=== PATIENT | male | born 1980 | race Hispanic/Latino ===

== ENCOUNTER 2019-05-25 07:10 | Inpatient (IN) | payer OTHER ==
[~2019-05-25] VITALS: Ht 172.7 cm; Wt 157.0 kg
[2019-05-25] VITALS (18 sets, daily range): BP systolic 75–152; BP diastolic 30–96
[2019-05-25] MEDS ORDERED: FUROSEMIDE 10 MG/ML 4ML VIAL ONE (07:28)
[2019-05-25 07:46] LABS: BASOPHILS % (AUTO) 0.8 % (0.0-5.0); EOSINOPHILS % (AUTO) 4.2 % (0.0-8.0); HEMATOCRIT 50.2 % (42-54); LYMPHOCYTES % (AUTO) 20.7 % (21.0-51.0); MEAN CORPUSCULAR HEMOGLOBIN 25.7 pg (27.0-33.0); MEAN CORPUSCULAR HGB CONC 30.6 g/dL (32.0-36.0); MONOCYTES % (AUTO) 8.3 % (3.0-13.0); NUCLEATED RED BLOOD CELLS 0.4 % (0.0-0.19); PLATELET COUNT (AUTO) 211 K/uL (130-400); RED BLOOD CELL COUNT(AUTO) 5.97 MIL/uL (4.50-6.20); WHITE BLOOD COUNT (AUTO) 9.7 K/uL (4.8-10.8)
[2019-05-25 07:53] LABS: POTASSIUM 4.6 mmol/L (3.5-5.1)
[2019-05-25 07:55] LABS: INR 1.02 (0.85-1.15); PARTIAL THROMBOPLASTIN TIME 24.4 SEC (26.3-35.5); PROTHROMBIN TIME 10.7 SEC (9.6-11.6)
[2019-05-25 07:58] LABS: ABG BASE EXCESS 6.7 mmol/L (-2.0-3.0); ABG HCO3 38.5 mmol/L (21.0-28.0); ABG OXYGEN SATURATION 88.1 % (95.0-99.0); ABG PCO2 96 mmHg (35-48)
[2019-05-25 08:09] LABS: ALBUMIN 3.1 g/dL (3.5-5.0); BILIRUBIN,TOTAL 0.5 mg/dL (0.2-1.0); TOTAL PROTEIN, SERUM 7.1 g/dL (6.0-8.3)
[2019-05-25 08:36] LABS: B-TYPE NATRIURETIC PEPTIDE 128 pg/mL (0-100)
[2019-05-25] MEDS ORDERED: LACTULOSE 20 GM/30 ML UDCUP PO PRN (10:30)
[2019-05-25] MEDS ORDERED: ONDANSETRON HCL 4 MG/2 ML VIAL IV PRN (10:30)
[2019-05-25] MEDS: ZOSYN 3.375GM+NS 50ML 50 ML IV SCH ×2 (10:45→18:00)
[2019-05-25] MEDS ORDERED: VANCOMYCIN 2 GM in SODIUM CHLORIDE 0.9% 500ML 500 ML IV SCH (10:45)
[2019-05-25] MEDS ORDERED: VANCOMYCIN PROTOCOL PER PHARMACY IV SCH ×2 (10:45→11:00)
[2019-05-25] MEDS ORDERED: PHARMACY COMMUNICATION MISC SCH (11:00)
[2019-05-25 11:12] LABS: APPEARANCE,URINE Clear (CLEAR); BILIRUBIN,URINE Negative (NEGATIVE); COLOR,URINE Yellow (YELLOW); GLUCOSE, URINE (UA) Negative (NEGATIVE); KETONES,URINE Negative (NEGATIVE); LEUKOCYTE ESTERASE ,URINE Negative (NEGATIVE); NITRATE,URINE Negative (NEGATIVE); OCCULT BLOOD,URINE Large (NEGATIVE); PH,URINE 5.5 (5.0-8.0); PROTEIN,URINE Negative (NEGATIVE)
[2019-05-25 11:17] LABS: AMPHET/METH SCREEN,URINE NEGATIVE (NEGATIVE); BARBITURATE SCREEN, URINE NEGATIVE (NEGATIVE); BENZODIAZEPINES SCREEN,URINE NEGATIVE (NEGATIVE); CANNABINOID SCREEN,URINE NEGATIVE (NEGATIVE); COCAINE SCREEN,URINE NEGATIVE (NEGATIVE); OPIATE SCREEN,URINE NEGATIVE (NEGATIVE); PHENCYCLIDINE SCREEN,URINE NEGATIVE (NEGATIVE)
[2019-05-25] MEDS ORDERED: SODIUM BICARB 8.4% 50ML SYRINGE IVP ONE (11:21)
[2019-05-25] MEDS ORDERED: EPINEPHRINE 0.1 MG/ML 10 ML SYG IVP ONE (11:21)
[2019-05-25] MEDS ORDERED: AMIODARONE HCL 50 MG/ML 3 ML VIAL IV ONE (11:21)
[2019-05-25] MEDS ORDERED: ATROPINE SULFATE 0.1 MG/ML 10 ML SYG IVP ONE (11:21)
[2019-05-25 11:28] LABS: ABG BASE EXCESS 4.8 mmol/L (-2.0-3.0); ABG HCO3 37.8 mmol/L (21.0-28.0); ABG OXYGEN SATURATION 91.6 % (95.0-99.0); ABG PCO2 103 mmHg (35-48)
[2019-05-25] MEDS ORDERED: IOHEXOL 350 MG/ML 100ML INFUS..BTL IV ONE (11:52)
[2019-05-25 11:56] LABS: BACTERIA,URINE Rare /HPF (None Seen); RBC,URINE TNTC /HPF (0-1); SQUAMOUS EPITHELIAL CELL,UR Rare /HPF (0-2); WBC,URINE 0-1 /HPF (0-1)
[2019-05-25] MEDS ORDERED: IPRATROPIUM/ALBUTEROL SULFATE 3 ML SOLUTION IH SCH (12:00)
[2019-05-25] MEDS ORDERED: ZOSYN 3.375GM+NS 50ML 50 ML IV ONE (12:24)
--- NOTE | 2019-05-25 12:38 | NUR ---
PATIENT ARRIVED TO 209 FROM ER. PATIENT MOVED HIMSELF FROM ER STRETCHER TO ICU BED. CONNECTED TO ICU MONITORS, ALARMS ON AND AUDIBLE. PLACED ON BIPAP AT ORDERED SETTINGS. ASSESSED PER CHARTING. PATIENT'S IN ROOM, ALL QUESTIONS ANSWERED. BED LOCKED AND LOW, CALL LIGHT IN REACH.
[2019-05-25] MEDS ORDERED: FURO20TA4 PO (12:59)
[2019-05-25] MEDS ORDERED: COMPOUND IV REFRIGERATED 1 EACH IVSOLN MISC PRN (14:00)
[2019-05-25] MEDS ORDERED: ETOMIDATE 2 MG/ML 10 ML VIAL IVP ONE (14:14)
[2019-05-25] MEDS ORDERED: ROCURONIUM BROMIDE 10MG/1ML 5ML VL IV ONE (14:14)
[2019-05-25 15:30] LABS: ABG BASE EXCESS 9.5 mmol/L (-2.0-3.0); ABG HCO3 43.6 mmol/L (21.0-28.0); ABG OXYGEN SATURATION 95.7 % (95.0-99.0); ABG PCO2 123 mmHg (35-48)
[2019-05-25] MEDS ORDERED: PROPOFOL 1000 MG/100 ML 100 ML IV ONE (15:32)
[2019-05-25] MEDS ORDERED: FENTANYL CITRATE PF 50 MCG/1 ML 5ML AMP IV ONE (15:34)
[2019-05-25] MEDS ORDERED: SODIUM CHLORIDE 0.9% 1000ML 1,000 ML IV ONE (15:43)
--- NOTE | 2019-05-25 15:45 | NUR ---
PATIENT INTUBATED BY DR MONGE AND PLACED ON ORDERED SETTINGS. NGT AND REYNA CATHETER PLACED ORDERED. CXR PENDING. ABG IN 2 HOURS.
[2019-05-25] MEDS ORDERED: ETOMIDATE 2 MG/ML 10 ML VIAL IVP SCH (16:30)
[2019-05-25] MEDS ORDERED: ROCURONIUM 10MG/1ML SYR 10 MG/ML ML IV SCH (16:30)
[2019-05-25] MEDS ORDERED: FENTANYL CITRATE PF 50 MCG/1 ML 2ML VIAL IVP SCH (16:30)
[2019-05-25] MEDS: INSULIN HUMULIN R 100 UNIT/ML 3ML SQ SCH (17:38)
[2019-05-25] MEDS: PROPOFOL 1000 MG/100 ML IV PRN ×3 (17:38→22:14)
[2019-05-25] MEDS: LEVOFLOXACIN 750 MG/D5W 150 ML 150 ML IV SCH (18:00)
[2019-05-25] MEDS: IPRATROPIUM/ALBUTEROL SULFATE 3 ML SOLUTION IH SCH ×2 (18:23→22:06)
[2019-05-25 19:22] LABS: ABG BASE EXCESS 12.5 mmol/L (-2.0-3.0); ABG HCO3 39.5 mmol/L (21.0-28.0); ABG OXYGEN SATURATION 94.1 % (95.0-99.0); ABG PCO2 60 mmHg (35-48)
[2019-05-25] MEDS: FAMOTIDINE/PF 20 MG/2 ML VIAL IV SCH (20:16)
[2019-05-25] MEDS: FUROSEMIDE 10 MG/ML 4ML VIAL IVP SCH (20:16)
[2019-05-25] MEDS: ENOXAPARIN SODIUM 120 MG/0.8ML SQ SCH (20:19)
[2019-05-25] MEDS: ENOXAPARIN SODIUM 60 MG/0.6 ML SQ SCH (20:20)
[2019-05-25] MEDS: METHYLPREDNISOLONE SOD SUCC 125MG/2ML VIAL IVP SCH (21:24)
[2019-05-26] VITALS (24 sets, daily range): BP systolic 115–159; BP diastolic 59–93
[2019-05-26] MEDS: PROPOFOL 1000 MG/100 ML IV PRN ×4 (00:16→05:42)
[2019-05-26] MEDS: VANCOMYCIN 1.5 GM in SODIUM CHLORIDE 0.9% 250 ML IV SCH ×2 (01:18→13:17)
[2019-05-26] MEDS: IPRATROPIUM/ALBUTEROL SULFATE 3 ML SOLUTION IH SCH ×6 (02:04→21:36)
[2019-05-26] MEDS: ZOSYN 3.375GM+NS 50ML 50 ML IV SCH ×3 (02:12→17:45)
[2019-05-26 03:46] LABS: HEMATOCRIT 51.1 % (42-54); MEAN CORPUSCULAR HEMOGLOBIN 25.6 pg (27.0-33.0); MEAN CORPUSCULAR HGB CONC 30.5 g/dL (32.0-36.0); MEAN CORPUSCULAR VOLUME 83.7 fL (79-99); NUCLEATED RED BLOOD CELLS 0.2 % (0.0-0.19); PLATELET COUNT (AUTO) 192 K/uL (130-400); RED CELL DISTRIBUTION WIDTH 17.8 % (11.0-15.5); WHITE BLOOD COUNT (AUTO) 8.5 K/uL (4.8-10.8)
[2019-05-26 04:01] LABS: CREATININE 0.9 mg/dL (0.5-1.5); MAGNESIUM 1.8 mg/dL (1.80-2.40); PHOSPHORUS 2.5 mg/dL (2.5-4.9)
[2019-05-26 04:46] LABS: ABG BASE EXCESS 10.7 mmol/L (-2.0-3.0); ABG HCO3 36.6 mmol/L (21.0-28.0); ABG PCO2 53 mmHg (35-48)
[2019-05-26] MEDS: INSULIN HUMULIN R 100 UNIT/ML 3ML SQ SCH ×4 (05:44→17:47)
[2019-05-26] MEDS: METHYLPREDNISOLONE SOD SUCC 125MG/2ML VIAL IVP SCH ×3 (05:49→21:11)
[2019-05-26] MEDS: MIDAZOLAM 100MG-0.9% NS 100ML 100 ML IV PRN ×3 (07:37→23:28)
[2019-05-26] MEDS: FENTANYL 2500MCG+NS 250ML 250 ML IV PRN ×2 (07:37→21:12)
[2019-05-26] MEDS: FUROSEMIDE 10 MG/ML 4ML VIAL IVP SCH ×3 (08:03→21:10)
[2019-05-26] MEDS: ENOXAPARIN SODIUM 120 MG/0.8ML SQ SCH (08:03)
[2019-05-26] MEDS: FAMOTIDINE/PF 20 MG/2 ML VIAL IV SCH ×2 (08:03→21:10)
[2019-05-26] MEDS: ENOXAPARIN SODIUM 60 MG/0.6 ML SQ SCH (08:06)
[2019-05-26] MEDS ORDERED: ENOXAPARIN SODIUM 40 MG/0.4 ML SYRINGE SQ SCH (09:00)
--- NOTE | 2019-05-26 15:10 | NUR ---
PATIENT MOVED ON TO SPECIALTY BED WITH ROTATION MODE ON.
[2019-05-26] MEDS: LEVOFLOXACIN 750 MG/D5W 150 ML 150 ML IV SCH (17:25)
--- NOTE | 2019-05-26 18:13 | NUR ---
cm note met with patients , pt currently intubated, states pt is normally ambulatory, but has been weaker in the last few weeks. pt has a cpap machine at home and a nebulizer as well. goes to see dr arizmendi at [facility] in [place], states dc plan is back to home at time of dc. and stepdaughter to assist when discharged to home. gets his meds at [facility]. and transports to [place]. has already spoken to [facility] for possible su[facility]anne or [facility] assistance. Addendum: 05/26/19 at 1817 by YURI VICTOR CM Amended: Links added.
[2019-05-26 18:24] LABS: HEMATOCRIT 50.7 % (42-54); MEAN CORPUSCULAR HEMOGLOBIN 25.6 pg (27.0-33.0); MEAN CORPUSCULAR HGB CONC 30.7 g/dL (32.0-36.0); MEAN CORPUSCULAR VOLUME 83.6 fL (79-99); NUCLEATED RED BLOOD CELLS 0.1 % (0.0-0.19); PLATELET COUNT (AUTO) 216 K/uL (130-400); RED BLOOD CELL COUNT(AUTO) 6.07 MIL/uL (4.50-6.20); RED CELL DISTRIBUTION WIDTH 18.3 % (11.0-15.5); WHITE BLOOD COUNT (AUTO) 10.2 K/uL (4.8-10.8)
[2019-05-26 18:37] LABS: INR 1.07 (0.85-1.15); PROTHROMBIN TIME 11.2 SEC (9.6-11.6)
[2019-05-26 20:25] LABS: HEMATOCRIT 48.9 % (42-54)
[2019-05-26 20:33] LABS: MAGNESIUM 1.9 mg/dL (1.80-2.40); POTASSIUM 4.1 mmol/L (3.5-5.1)
[2019-05-26] MEDS ORDERED: MAGNESIUM 2GM PREMIX 50ML 50 ML IV PRN (21:00)
[2019-05-26] MEDS: OXYMETAZOLINE HCL SPRAY 15 ML BOTTLE EN PRN ×2 (21:13→23:27)
[2019-05-27] VITALS (24 sets, daily range): BP systolic 109–133; BP diastolic 50–95
[2019-05-27] MEDS: IPRATROPIUM/ALBUTEROL SULFATE 3 ML SOLUTION IH SCH ×6 (01:01→21:56)
[2019-05-27] MEDS: VANCOMYCIN 1.5 GM in SODIUM CHLORIDE 0.9% 250 ML IV SCH ×2 (02:07→13:43)
[2019-05-27] MEDS: INSULIN HUMULIN R 100 UNIT/ML 3ML SQ SCH ×4 (02:10→17:57)
[2019-05-27] MEDS: ZOSYN 3.375GM+NS 50ML 50 ML IV SCH ×3 (03:55→17:50)
[2019-05-27 04:04] LABS: BASOPHILS % (AUTO) 0.1 % (0.0-5.0); HEMATOCRIT 46.8 % (42-54); LYMPHOCYTES % (AUTO) 7.5 % (21.0-51.0); MEAN CORPUSCULAR HEMOGLOBIN 25.9 pg (27.0-33.0); MEAN CORPUSCULAR HGB CONC 31.5 g/dL (32.0-36.0); MEAN CORPUSCULAR VOLUME 82.3 fL (79-99); MONOCYTES % (AUTO) 5.9 % (3.0-13.0); NEUTROPHILS % (AUTO) 86.5 % (40.0-77.0); NUCLEATED RED BLOOD CELLS 0.1 % (0.0-0.19); PLATELET COUNT (AUTO) 236 K/uL (130-400); RED BLOOD CELL COUNT(AUTO) 5.68 MIL/uL (4.50-6.20); RED CELL DISTRIBUTION WIDTH 17.6 % (11.0-15.5); WHITE BLOOD COUNT (AUTO) 10.3 K/uL (4.8-10.8)
[2019-05-27 04:20] LABS: CREATININE 1.3 mg/dL (0.5-1.5); MAGNESIUM 2.2 mg/dL (1.80-2.40); PHOSPHORUS 4.2 mg/dL (2.5-4.9); POTASSIUM 4.3 mmol/L (3.5-5.1)
[2019-05-27] MEDS: OXYMETAZOLINE HCL SPRAY 15 ML BOTTLE EN PRN (05:05)
[2019-05-27] MEDS: METHYLPREDNISOLONE SOD SUCC 125MG/2ML VIAL IVP SCH ×3 (05:54→21:19)
[2019-05-27] MEDS: FUROSEMIDE 10 MG/ML 4ML VIAL IVP SCH ×3 (05:54→21:18)
[2019-05-27 07:05] LABS: ABG BASE EXCESS 12.2 mmol/L (-2.0-3.0); ABG HCO3 37.5 mmol/L (21.0-28.0); ABG OXYGEN SATURATION 92.9 % (95.0-99.0); ABG PCO2 50 mmHg (35-48)
[2019-05-27] MEDS: FAMOTIDINE/PF 20 MG/2 ML VIAL IV SCH ×2 (08:10→21:18)
[2019-05-27] MEDS: FENTANYL 2500MCG+NS 250ML 250 ML IV PRN (10:28)
[2019-05-27] MEDS: MIDAZOLAM 100MG-0.9% NS 100ML 100 ML IV PRN ×2 (10:28→20:30)
[2019-05-27] MEDS: ENOXAPARIN SODIUM 40 MG/0.4 ML SYRINGE SQ SCH (13:20)
[2019-05-27] MEDS: VANCOMYCIN 1.75 GM in SODIUM CHLORIDE 0.9% 250 ML IV SCH (14:00)
[2019-05-27] MEDS: LEVOFLOXACIN 750 MG/D5W 150 ML 150 ML IV SCH (17:19)
[2019-05-28] VITALS (25 sets, daily range): BP systolic 119–160; BP diastolic 63–98
[2019-05-28] MEDS: INSULIN HUMULIN R 100 UNIT/ML 3ML SQ SCH ×4 (01:16→18:02)
[2019-05-28] MEDS: IPRATROPIUM/ALBUTEROL SULFATE 3 ML SOLUTION IH SCH ×6 (01:54→21:54)
[2019-05-28] MEDS: VANCOMYCIN 1.75 GM in SODIUM CHLORIDE 0.9% 250 ML IV SCH ×2 (02:21→14:24)
[2019-05-28] MEDS: FENTANYL 2500MCG+NS 250ML 250 ML IV PRN ×2 (02:21→14:22)
[2019-05-28] MEDS: ZOSYN 3.375GM+NS 50ML 50 ML IV SCH ×3 (02:21→18:03)
[2019-05-28 04:24] LABS: BASOPHILS % (AUTO) 0.3 % (0.0-5.0); HEMATOCRIT 45.5 % (42-54); LYMPHOCYTES % (AUTO) 9.5 % (21.0-51.0); MEAN CORPUSCULAR HEMOGLOBIN 25.7 pg (27.0-33.0); MEAN CORPUSCULAR HGB CONC 31.2 g/dL (32.0-36.0); MEAN CORPUSCULAR VOLUME 82.5 fL (79-99); NEUTROPHILS % (AUTO) 84.2 % (40.0-77.0); NUCLEATED RED BLOOD CELLS 0.1 % (0.0-0.19); PLATELET COUNT (AUTO) 203 K/uL (130-400); RED BLOOD CELL COUNT(AUTO) 5.52 MIL/uL (4.50-6.20); RED CELL DISTRIBUTION WIDTH 18.1 % (11.0-15.5); WHITE BLOOD COUNT (AUTO) 9.8 K/uL (4.8-10.8)
[2019-05-28 04:38] LABS: ALANINE AMINOTRANSFERASE 42 U/L (12-78); ALBUMIN 2.7 g/dL (3.5-5.0); ASPARTATE AMINOTRANSFERASE 33 U/L (10-37); BILIRUBIN,TOTAL 0.9 mg/dL (0.2-1.0); CARBON DIOXIDE 36 mmol/L (21-32); CHLORIDE 98 mmol/L (101-111); CREATININE 1.3 mg/dL (0.5-1.5); GLOMERULAR FILTR. RATE CALC 66 mL/min (>60); GLUCOSE,RANDOM 182 mg/dL (70-105); POTASSIUM 3.9 mmol/L (3.5-5.1); SODIUM SERUM 139 mmol/L (136-145); TOTAL PROTEIN, SERUM 6.5 g/dL (6.0-8.3); UREA NITROGEN, BLOOD 30 mg/dL (7-18)
[2019-05-28] MEDS: MIDAZOLAM 100MG-0.9% NS 100ML 100 ML IV PRN ×2 (06:36→15:30)
[2019-05-28] MEDS: METHYLPREDNISOLONE SOD SUCC 125MG/2ML VIAL IVP SCH ×3 (06:42→21:44)
[2019-05-28] MEDS: FUROSEMIDE 10 MG/ML 4ML VIAL IVP SCH ×3 (06:43→21:44)
--- NOTE | 2019-05-28 08:26 | NUR ---
pt intubated. on vent Addendum: 05/28/19 at 0827 by JAMIR JUAREZ RT Amended: Links added.
[2019-05-28] MEDS: FAMOTIDINE/PF 20 MG/2 ML VIAL IV SCH ×2 (09:33→20:37)
[2019-05-28] MEDS: ENOXAPARIN SODIUM 40 MG/0.4 ML SYRINGE SQ SCH (09:34)
[2019-05-28 11:13] LABS: ABG BASE EXCESS 10.2 mmol/L (-2.0-3.0); ABG HCO3 36.5 mmol/L (21.0-28.0); ABG OXYGEN SATURATION 90.9 % (95.0-99.0); ABG PCO2 55 mmHg (35-48)
[2019-05-28] MEDS: PROPOFOL 1000 MG/100 ML IV PRN ×4 (11:24→22:31)
[2019-05-28] MEDS: HEPARIN SODIUM 5000UNIT/ML 1ML VIAL SQ SCH ×2 (12:00→20:38)
--- NOTE | 2019-05-28 12:56 | NUR ---
PT NOW SEDATE WITH DIPRIVAN ON BOARD. PEEP IS NOW AT 10
--- NOTE | 2019-05-28 14:42 | NUR ---
RD NOTIFICATION - TUBE FEEDING RECOMMENDATIONS Tube Feeding Recommendations: Cont. Glucerna 1.5 @55mls/hr (1980kcal/109gm protein)Rec Flushes: 250mls Q6hrs. Tube feeding recommendations placed in Pt chart. RN notified. Pt admitted for CHF, Acute Respiratory Failure. Pt LBM 05/24/19. Pt monitored labs: Cl 98, CO2 36, BUN 30, Glu 207, Alb 2.7. Pt intubated, mechanical vent, NGT in place. RD to continue to monitor. Please notify RD as additional nutrition concerns arise. Thank you. Addendum: 05/28/19 at [address] RD Amended: Links added.
[2019-05-28] MEDS: LEVOFLOXACIN 750 MG/D5W 150 ML 150 ML IV SCH (16:21)
[2019-05-29] VITALS (25 sets, daily range): BP systolic 121–151; BP diastolic 64–102
[2019-05-29] MEDS: INSULIN HUMULIN R 100 UNIT/ML 3ML SQ SCH ×4 (00:25→19:38)
[2019-05-29] MEDS: FENTANYL 2500MCG+NS 250ML 250 ML IV PRN ×3 (00:27→20:51)
[2019-05-29] MEDS: MIDAZOLAM 100MG-0.9% NS 100ML 100 ML IV PRN ×3 (00:27→20:51)
[2019-05-29] MEDS: IPRATROPIUM/ALBUTEROL SULFATE 3 ML SOLUTION IH SCH ×6 (01:26→21:35)
[2019-05-29] MEDS: PROPOFOL 1000 MG/100 ML IV PRN ×4 (02:01→22:45)
[2019-05-29] MEDS: ZOSYN 3.375GM+NS 50ML 50 ML IV SCH ×3 (02:01→19:36)
[2019-05-29] MEDS: VANCOMYCIN 1.75 GM in SODIUM CHLORIDE 0.9% 250 ML IV SCH ×2 (02:02→15:17)
[2019-05-29 03:49] LABS: BASOPHILS % (AUTO) 0.3 % (0.0-5.0); HEMATOCRIT 46.5 % (42-54); LYMPHOCYTES % (AUTO) 8.3 % (21.0-51.0); MEAN CORPUSCULAR HEMOGLOBIN 25.6 pg (27.0-33.0); MEAN CORPUSCULAR HGB CONC 31.2 g/dL (32.0-36.0); MONOCYTES % (AUTO) 7.3 % (3.0-13.0); NEUTROPHILS % (AUTO) 84.1 % (40.0-77.0); PLATELET COUNT (AUTO) 215 K/uL (130-400); RED BLOOD CELL COUNT(AUTO) 5.67 MIL/uL (4.50-6.20); RED CELL DISTRIBUTION WIDTH 18.1 % (11.0-15.5); WHITE BLOOD COUNT (AUTO) 9.5 K/uL (4.8-10.8)
[2019-05-29] MEDS: HEPARIN SODIUM 5000UNIT/ML 1ML VIAL SQ SCH ×3 (04:01→20:35)
[2019-05-29 04:02] LABS: ALBUMIN 2.9 g/dL (3.5-5.0); CREATININE 1.9 mg/dL (0.5-1.5); MAGNESIUM 2.8 mg/dL (1.80-2.40); PHOSPHORUS 5.5 mg/dL (2.5-4.9); POTASSIUM 4.1 mmol/L (3.5-5.1); TOTAL PROTEIN, SERUM 6.7 g/dL (6.0-8.3)
[2019-05-29 04:12] LABS: ABG BASE EXCESS 9.8 mmol/L (-2.0-3.0); ABG HCO3 34.8 mmol/L (21.0-28.0); ABG OXYGEN SATURATION 93.4 % (95.0-99.0); ABG PCO2 47 mmHg (35-48)
[2019-05-29] MEDS: METHYLPREDNISOLONE SOD SUCC 125MG/2ML VIAL IVP SCH ×2 (05:15→15:16)
[2019-05-29] MEDS: FUROSEMIDE 10 MG/ML 4ML VIAL IVP SCH ×2 (05:16→11:38)
--- NOTE | 2019-05-29 08:00 | NUR ---
ASSESSMENT Orally intubated/sedated. Propofol gtt @30mcg/kg/min, fentanyl gtt @25ml/hr, versed gtt @10mg/hr. Pt appears comfortably sedated. VS as recorded. Vent settings as recorded. Pt repositioned. Posteriorly, breath sounds are clear to upper lobes. Fine inspiratory crackles noted to LLL. Abd obese. Very diminished bowel sounds. Abd slightly distended. NGT in place - residual check performed with brisk return of 70ml of TF. Residual returned. TF off at present. Will reassess. PIV x3 patent with brisk blood return from 3 sites. F/C patent. Pedal edema noted. Assessment completed/recorded. HOB @30-degrees - bed rotation ON. Pt's family member at bedside - questions addressed.
--- NOTE | 2019-05-29 10:45 | NUR ---
PT CARE/VENT MANAGEMENT Vent changes made by during rounds. R.T. contacted - spoke to Anaya.
[2019-05-29] MEDS: FAMOTIDINE/PF 20 MG/2 ML VIAL IV SCH ×2 (10:51→20:50)
--- NOTE | 2019-05-29 11:00 | NUR ---
STATUS 5ml TF residual obtained - returned. TF resumed at 25ml/hr. HOB @30-degrees. Opti-Rest therapy now active on bed - rotation off. Eye opening with tactile stimulation - now off diprivan x25 minutes. Pt currently calm - focuses gaze on caregiver. Pt reassured. Will observe tolerance of decreased sedation. Family members remain at bedside. Pt is in no acute distress. No other acute changes in overall assessment noted.
--- NOTE | 2019-05-29 12:25 | NUR ---
STATUS Spontaneous eye opening. Focuses and follows commands. Calm, cooperative. Denies pain when questioned. SR/ST on tele. Pt reoriented/reassured. Repositioned for comfort. HOB @30-degrees. Family members remains at bedside. Pt is in no acute distress.
--- NOTE | 2019-05-29 13:19 | NUR ---
CHART CHECK COMPLETED. Pt IS A 38 YEAR OLD MAN ADMITTED SECONDARY TO METABOLIC ENCEPHALOPATHY, ACUTE ON CHRONIC HYPOXEMIC AND HYPERCARBIC RESPIRATORY FAILURE. Pt WITH MORBID OBESITY, ACUTE HEART FAILURE AND ACUTE PULMONARY EDEMA. Pt CURRENTLY INTUBATED ON THE VENT. SKILLED SPEECH THERAPY IS RECOMMENDED 24 HOURS POST EXTUBATION. Addendum: 05/29/19 at 1322 by AUSTIN JUAN [facility] Amended: Links added.
[2019-05-29 16:13] LABS: ABG BASE EXCESS 7.9 mmol/L (-2.0-3.0); ABG HCO3 36.4 mmol/L (21.0-28.0); ABG PCO2 68 mmHg (35-48)
--- NOTE | 2019-05-29 16:26 | NUR ---
UPDATE aware of recent ABG results.
[2019-05-29] MEDS: LEVOFLOXACIN 750 MG/D5W 150 ML 150 ML IV SCH (17:13)
[2019-05-29] MEDS ORDERED: DIGOXIN 250 MCG/ML 2ML AMP IV SCH ×2 (17:15→23:00)
[2019-05-29] MEDS: METHYLPREDNISOLONE SOD SUCC 40MG/ML 1ML IVP SCH (20:50)
[2019-05-29] MEDS: METOPROLOL TARTRATE 25 MG TAB PO SCH (20:50)
[2019-05-30] VITALS (36 sets, daily range): BP systolic 92–129; BP diastolic 46–79
[2019-05-30] MEDS: INSULIN HUMULIN R 100 UNIT/ML 3ML SQ SCH ×4 (00:28→18:00)
[2019-05-30] MEDS: PROPOFOL 1000 MG/100 ML IV PRN ×6 (01:25→23:09)
[2019-05-30] MEDS: IPRATROPIUM/ALBUTEROL SULFATE 3 ML SOLUTION IH SCH ×6 (01:46→21:38)
--- NOTE | 2019-05-30 03:10 | NUR ---
COMPLETE BATH GIVEN LINENS CHANGED. NO SKIN BREAKDOWN.
[2019-05-30] MEDS: VANCOMYCIN 1.75 GM in SODIUM CHLORIDE 0.9% 250 ML IV SCH (03:14)
[2019-05-30] MEDS: ZOSYN 3.375GM+NS 50ML 50 ML IV SCH ×3 (03:20→17:57)
[2019-05-30] MEDS: HEPARIN SODIUM 5000UNIT/ML 1ML VIAL SQ SCH ×3 (03:21→20:17)
[2019-05-30 03:41] LABS: ALBUMIN 2.8 g/dL (3.5-5.0); BILIRUBIN,TOTAL 1.1 mg/dL (0.2-1.0); CREATININE 1.2 mg/dL (0.5-1.5); POTASSIUM 4.5 mmol/L (3.5-5.1); TOTAL PROTEIN, SERUM 6.7 g/dL (6.0-8.3)
[2019-05-30 03:49] LABS: BASOPHILS % (AUTO) 0.1 % (0.0-5.0); HEMATOCRIT 45.8 % (42-54); LYMPHOCYTES % (AUTO) 8.4 % (21.0-51.0); MEAN CORPUSCULAR HEMOGLOBIN 25.9 pg (27.0-33.0); MEAN CORPUSCULAR HGB CONC 30.9 g/dL (32.0-36.0); MEAN CORPUSCULAR VOLUME 83.7 fL (79-99); MONOCYTES % (AUTO) 8.6 % (3.0-13.0); NEUTROPHILS % (AUTO) 82.9 % (40.0-77.0); PLATELET COUNT (AUTO) 203 K/uL (130-400); RED BLOOD CELL COUNT(AUTO) 5.48 MIL/uL (4.50-6.20); RED CELL DISTRIBUTION WIDTH 17.7 % (11.0-15.5); WHITE BLOOD COUNT (AUTO) 9.6 K/uL (4.8-10.8)
[2019-05-30 03:57] LABS: B-TYPE NATRIURETIC PEPTIDE 12 pg/mL (0-100)
[2019-05-30 04:14] LABS: ABG BASE EXCESS 7.3 mmol/L (-2.0-3.0); ABG HCO3 34.1 mmol/L (21.0-28.0); ABG PCO2 57 mmHg (35-48)
[2019-05-30] MEDS: MIDAZOLAM 100MG-0.9% NS 100ML 100 ML IV PRN ×2 (06:26→16:25)
[2019-05-30] MEDS: FENTANYL 2500MCG+NS 250ML 250 ML IV PRN ×2 (06:27→17:42)
--- NOTE | 2019-05-30 06:48 | NUR ---
AM ABG RESULTS REPORTED TO Parminder JAMES,BOX PRINTING MACHINE OPERATOR-NEW ORDERS RECEIVED
[2019-05-30] MEDS: METHYLPREDNISOLONE SOD SUCC 40MG/ML 1ML IVP SCH ×2 (09:17→20:26)
[2019-05-30] MEDS: FUROSEMIDE 10 MG/ML 4ML VIAL IVP SCH ×2 (09:18→17:51)
[2019-05-30] MEDS: FAMOTIDINE/PF 20 MG/2 ML VIAL IV SCH ×2 (09:18→20:26)
[2019-05-30] MEDS: METOPROLOL TARTRATE 25 MG TAB PO SCH ×3 (09:18→21:00)
[2019-05-30] MEDS: ASPIRIN 81MG TAB.CHEW PO SCH (13:19)
[2019-05-30] MEDS ORDERED: DIGOXIN 125 MCG TABLET PO SCH (16:00)
[2019-05-30] MEDS: LEVOFLOXACIN 750 MG/D5W 150 ML 150 ML IV SCH (16:15)
[2019-05-30 19:37] LABS: MAGNESIUM 2.7 mg/dL (1.80-2.40)
[2019-05-30 23:36] LABS: ABG BASE EXCESS 11.1 mmol/L (-2.0-3.0); ABG HCO3 37.7 mmol/L (21.0-28.0); ABG OXYGEN SATURATION 87.8 % (95.0-99.0); ABG PCO2 57 mmHg (35-48)
[2019-05-30 23:47] LABS: ABG BASE EXCESS 10.7 mmol/L (-2.0-3.0); ABG HCO3 37.1 mmol/L (21.0-28.0); ABG OXYGEN SATURATION 87.2 % (95.0-99.0); ABG PCO2 56 mmHg (35-48)
[2019-05-31] VITALS (38 sets, daily range): BP systolic 92–125; BP diastolic 50–75
--- NOTE | 2019-05-31 00:15 | NUR ---
Parminder JAMESTESTER EQUIPMENT NOTIFIED OF ABG RESULTS WITH VENT SETTINGS AC 12/ TV 500/PEEP10/FIO2 40%-NEW ORDER TO INCREASE FIO2 TO 60 % ABG IN AM .
[2019-05-31] MEDS: FUROSEMIDE 10 MG/ML 4ML VIAL IVP SCH ×3 (00:52→16:18)
[2019-05-31] MEDS: INSULIN HUMULIN R 100 UNIT/ML 3ML SQ SCH ×4 (00:52→18:00)
[2019-05-31] MEDS: IPRATROPIUM/ALBUTEROL SULFATE 3 ML SOLUTION IH SCH ×6 (01:46→21:36)
[2019-05-31] MEDS: ZOSYN 3.375GM+NS 50ML 50 ML IV SCH ×3 (01:59→18:32)
[2019-05-31] MEDS: MIDAZOLAM 100MG-0.9% NS 100ML 100 ML IV PRN ×3 (02:14→23:31)
[2019-05-31] MEDS: PROPOFOL 1000 MG/100 ML IV PRN ×6 (03:00→23:31)
[2019-05-31 03:54] LABS: HEMATOCRIT 46.1 % (42-54); MEAN CORPUSCULAR HGB CONC 31.5 g/dL (32.0-36.0); MEAN CORPUSCULAR VOLUME 82.4 fL (79-99); PLATELET COUNT (AUTO) 216 K/uL (130-400); RED BLOOD CELL COUNT(AUTO) 5.59 MIL/uL (4.50-6.20); RED CELL DISTRIBUTION WIDTH 17.9 % (11.0-15.5); WHITE BLOOD COUNT (AUTO) 8.8 K/uL (4.8-10.8)
[2019-05-31 03:57] LABS: ABG BASE EXCESS 11.3 mmol/L (-2.0-3.0); ABG HCO3 37.2 mmol/L (21.0-28.0); ABG PCO2 53 mmHg (35-48)
[2019-05-31] MEDS: FENTANYL 2500MCG+NS 250ML 250 ML IV PRN ×3 (04:00→23:32)
[2019-05-31] MEDS: HEPARIN SODIUM 5000UNIT/ML 1ML VIAL SQ SCH ×3 (04:01→21:20)
[2019-05-31 04:09] LABS: CREATININE 1.3 mg/dL (0.5-1.5); MAGNESIUM 2.7 mg/dL (1.80-2.40); PHOSPHORUS 4.3 mg/dL (2.5-4.9)
[2019-05-31] MEDS: METHYLPREDNISOLONE SOD SUCC 40MG/ML 1ML IVP SCH ×2 (08:09→21:09)
[2019-05-31] MEDS: ASPIRIN 81MG TAB.CHEW PO SCH (08:10)
[2019-05-31] MEDS: FAMOTIDINE/PF 20 MG/2 ML VIAL IV SCH ×2 (08:10→21:09)
[2019-05-31] MEDS: ACETAMINOPHEN 325 MG TAB PO PRN ×2 (08:43→16:47)
[2019-05-31] MEDS: METOPROLOL TARTRATE 25 MG TAB PO SCH ×2 (09:14→21:09)
[2019-05-31 09:56] LABS: ABG BASE EXCESS 10.3 mmol/L (-2.0-3.0); ABG HCO3 36.2 mmol/L (21.0-28.0); ABG OXYGEN SATURATION 90.6 % (95.0-99.0); ABG PCO2 53 mmHg (35-48)
[2019-05-31] MEDS: DOXYCYCLINE 100MG+NS 250ML 250 ML IV SCH (13:28)
[2019-05-31 13:58] LABS: ALBUMIN 3.1 g/dL (3.5-5.0); BILIRUBIN,DIRECT 0.4 mg/dL (0.0-0.3); TOTAL PROTEIN, SERUM 6.9 g/dL (6.0-8.3)
--- NOTE | 2019-05-31 15:01 | NUR ---
LUIS NOTIFICATION/ FOLLOW UP DX: CHF, ARF. DIET: TF- GLUCERNA 1.5 @30MLS/HR. FLUSH WITH 250MLS Q6. PT NOT TOLERATING WELL PER NURSE. PT WITH HIGH RESIDUALS OF 170MLS AT LOW RATE. DIPRIVAN CURRENTLY RUNNING AT 21MLS/HR. RD RECOMMENDS TO D/C GLUCERNA 1.5. RECOMMEND JEVITY 1.5 AT GOAL RATE OF 55MLS/HR. START RATE AT 20MLS/ HR. INCREASE RATE BY 5MLS EVERY 5 HOURS TOLERATED. FORMULA PROVIDES 1980KCAL/D, 100G PROTEIN, 1186MLS FREE WATER. FLUSH WITH 200MLS Q6. TOTAL CALORIES INCLUDING DIPRIVAN EQUALS TO 2534KCAL/D, TOTAL WATER EQUALS 2000MLS/D. LABS: BG 158, TG 252, CHOL 288, LDL 165, ALB 2.8, Mg 2.7 MONITOR LABS, TOLERANCE AND RESIDUALS RD WILL CONTINUE TO MONITOR AND FOLLOW UP NEEDED. THANK YOU. Addendum: 05/31/19 at [address] RD Amended: Links added.
[2019-05-31] MEDS: LEVOFLOXACIN 750 MG/D5W 150 ML 150 ML IV SCH (16:10)
--- NOTE | 2019-05-31 20:00 | NUR ---
ASSESSMENT REMAINS ON VENT WITH ORDERED SETTINGS AND SEDATION. ASSESSMENT COMPLETED SEE FLOW SHEET. FAMILY AT BEDSIDE AND QUESTIONS ANSWERED. Addendum: 05/31/19 at 2203 by BERT RIDER RN RN Amended: Links added.
[2019-05-31] MEDS: LACTULOSE 20 GM/30 ML UDCUP PO SCH (21:09)
[2019-06-01] VITALS (39 sets, daily range): BP systolic 110–135; BP diastolic 55–78
[2019-06-01] MEDS: DOXYCYCLINE 100MG+NS 250ML 250 ML IV SCH ×2 (00:33→13:43)
[2019-06-01] MEDS: FUROSEMIDE 10 MG/ML 4ML VIAL IVP SCH ×3 (00:33→16:22)
[2019-06-01] MEDS: INSULIN HUMULIN R 100 UNIT/ML 3ML SQ SCH ×4 (00:40→17:41)
[2019-06-01] MEDS: IPRATROPIUM/ALBUTEROL SULFATE 3 ML SOLUTION IH SCH ×6 (01:53→21:57)
[2019-06-01] MEDS: ZOSYN 3.375GM+NS 50ML 50 ML IV SCH ×3 (02:24→17:35)
[2019-06-01 03:49] LABS: HEMATOCRIT 46.4 % (42-54); MEAN CORPUSCULAR HGB CONC 31.2 g/dL (32.0-36.0); MEAN CORPUSCULAR VOLUME 83.4 fL (79-99); PLATELET COUNT (AUTO) 211 K/uL (130-400); RED BLOOD CELL COUNT(AUTO) 5.57 MIL/uL (4.50-6.20); RED CELL DISTRIBUTION WIDTH 17.4 % (11.0-15.5); WHITE BLOOD COUNT (AUTO) 9.4 K/uL (4.8-10.8)
[2019-06-01 03:52] LABS: HEMOGLOBIN A1C 7.1 % (4.0-6.0)
[2019-06-01 04:10] LABS: ALBUMIN 3.2 g/dL (3.5-5.0); CREATININE 1.2 mg/dL (0.5-1.5); MAGNESIUM 2.6 mg/dL (1.80-2.40); PHOSPHORUS 4.9 mg/dL (2.5-4.9); POTASSIUM 4.1 mmol/L (3.5-5.1)
[2019-06-01] MEDS: HEPARIN SODIUM 5000UNIT/ML 1ML VIAL SQ SCH ×3 (04:33→20:53)
[2019-06-01] MEDS ORDERED: SODIUM CHLORIDE 0.9% 250 ML IV ONE (05:18)
[2019-06-01 05:27] LABS: B-TYPE NATRIURETIC PEPTIDE 8 pg/mL (0-100)
[2019-06-01] MEDS: ACETAMINOPHEN 325 MG TAB PO PRN (08:13)
[2019-06-01] MEDS: METHYLPREDNISOLONE SOD SUCC 40MG/ML 1ML IVP SCH ×2 (08:14→20:54)
[2019-06-01] MEDS: FAMOTIDINE/PF 20 MG/2 ML VIAL IV SCH ×2 (08:14→20:53)
[2019-06-01] MEDS: ASPIRIN 81MG TAB.CHEW PO SCH (08:15)
[2019-06-01] MEDS: LACTULOSE 20 GM/30 ML UDCUP PO SCH ×2 (08:15→20:53)
[2019-06-01] MEDS: PROPOFOL 1000 MG/100 ML IV PRN ×4 (09:13→22:21)
[2019-06-01] MEDS: METOPROLOL TARTRATE 25 MG TAB PO SCH ×2 (09:21→20:55)
[2019-06-01] MEDS: FENTANYL 2500MCG+NS 250ML 250 ML IV PRN ×2 (10:00→18:10)
[2019-06-01 10:09] LABS: ABG BASE EXCESS 12.5 mmol/L (-2.0-3.0); ABG HCO3 39.3 mmol/L (21.0-28.0); ABG OXYGEN SATURATION 92.1 % (95.0-99.0); ABG PCO2 58 mmHg (35-48)
[2019-06-01] MEDS: MIDAZOLAM 100MG-0.9% NS 100ML 100 ML IV PRN ×2 (10:12→20:54)
[2019-06-01 10:38] LABS: HEPATITIS A ANTIBODY IGM Negative (Negative); HEPATITIS B CORE IGM Negative (Negative); HEPATITIS Bs ANTIGEN SCREEN P Negative (Negative)
[2019-06-02] VITALS (31 sets, daily range): BP systolic 108–156; BP diastolic 48–99
[2019-06-02] MEDS: INSULIN HUMULIN R 100 UNIT/ML 3ML SQ SCH ×4 (00:37→18:00)
[2019-06-02] MEDS: FUROSEMIDE 10 MG/ML 4ML VIAL IVP SCH ×3 (00:38→17:00)
[2019-06-02] MEDS: DOXYCYCLINE 100MG+NS 250ML 250 ML IV SCH ×2 (00:38→13:13)
[2019-06-02] MEDS: IPRATROPIUM/ALBUTEROL SULFATE 3 ML SOLUTION IH SCH ×6 (01:39→21:38)
[2019-06-02] MEDS: ZOSYN 3.375GM+NS 50ML 50 ML IV SCH ×3 (02:53→18:35)
[2019-06-02] MEDS: HEPARIN SODIUM 5000UNIT/ML 1ML VIAL SQ SCH (03:40)
[2019-06-02 03:42] LABS: HEMATOCRIT 45.2 % (42-54); MEAN CORPUSCULAR HEMOGLOBIN 25.9 pg (27.0-33.0); MEAN CORPUSCULAR HGB CONC 31.3 g/dL (32.0-36.0); PLATELET COUNT (AUTO) 223 K/uL (130-400); RED BLOOD CELL COUNT(AUTO) 5.45 MIL/uL (4.50-6.20); RED CELL DISTRIBUTION WIDTH 17.8 % (11.0-15.5); WHITE BLOOD COUNT (AUTO) 8.8 K/uL (4.8-10.8)
[2019-06-02] MEDS: FENTANYL 2500MCG+NS 250ML 250 ML IV PRN ×2 (03:45→19:57)
[2019-06-02 04:02] LABS: ALBUMIN 3.1 g/dL (3.5-5.0); BILIRUBIN,TOTAL 0.9 mg/dL (0.2-1.0); CREATININE 1.3 mg/dL (0.5-1.5); POTASSIUM 4.4 mmol/L (3.5-5.1); TOTAL PROTEIN, SERUM 7.1 g/dL (6.0-8.3)
[2019-06-02] MEDS: METOPROLOL TARTRATE 25 MG TAB PO SCH ×2 (08:08→20:23)
[2019-06-02] MEDS: ACETAMINOPHEN 325 MG TAB PO PRN (08:08)
[2019-06-02] MEDS: LACTULOSE 20 GM/30 ML UDCUP PO SCH ×2 (08:08→20:23)
[2019-06-02] MEDS: ASPIRIN 81MG TAB.CHEW PO SCH (08:09)
[2019-06-02] MEDS: METHYLPREDNISOLONE SOD SUCC 40MG/ML 1ML IVP SCH ×2 (08:15→20:23)
[2019-06-02] MEDS: FAMOTIDINE/PF 20 MG/2 ML VIAL IV SCH ×2 (08:15→20:23)
[2019-06-02] MEDS: MIDAZOLAM 100MG-0.9% NS 100ML 100 ML IV PRN ×2 (08:18→19:56)
[2019-06-02 11:32] LABS: ABG BASE EXCESS 10.7 mmol/L (-2.0-3.0); ABG HCO3 38.3 mmol/L (21.0-28.0); ABG OXYGEN SATURATION 89.1 % (95.0-99.0); ABG PCO2 63 mmHg (35-48)
[2019-06-03] VITALS (23 sets, daily range): BP systolic 102–138; BP diastolic 55–106
[2019-06-03] MEDS: FUROSEMIDE 10 MG/ML 4ML VIAL IVP SCH ×5 (00:20→21:16)
[2019-06-03] MEDS: DOXYCYCLINE 100MG+NS 250ML 250 ML IV SCH ×2 (00:20→11:48)
[2019-06-03] MEDS: ACETAMINOPHEN 325 MG TAB PO PRN ×4 (00:20→23:38)
[2019-06-03] MEDS: INSULIN HUMULIN R 100 UNIT/ML 3ML SQ SCH ×4 (00:38→18:00)
[2019-06-03] MEDS: IPRATROPIUM/ALBUTEROL SULFATE 3 ML SOLUTION IH SCH ×6 (01:00→22:10)
[2019-06-03] MEDS: ZOSYN 3.375GM+NS 50ML 50 ML IV SCH ×2 (02:47→09:45)
[2019-06-03 04:28] LABS: CREATININE 1.1 mg/dL (0.5-1.5); POTASSIUM 3.8 mmol/L (3.5-5.1)
[2019-06-03 04:34] LABS: HEMATOCRIT 46.8 % (42-54); MEAN CORPUSCULAR HEMOGLOBIN 25.8 pg (27.0-33.0); MEAN CORPUSCULAR HGB CONC 30.5 g/dL (32.0-36.0); MEAN CORPUSCULAR VOLUME 84.8 fL (79-99); PLATELET COUNT (AUTO) 236 K/uL (130-400); RED BLOOD CELL COUNT(AUTO) 5.53 MIL/uL (4.50-6.20); RED CELL DISTRIBUTION WIDTH 17.8 % (11.0-15.5); WHITE BLOOD COUNT (AUTO) 10.1 K/uL (4.8-10.8)
[2019-06-03 05:47] LABS: BAND NEUTROPHILS % (MANUAL) 4 % (0-2); EOSINOPHILS % (MANUAL) 1 % (1-6); LYMPHOCYTES % (MANUAL) 7 % (22-44); MAN.DIFF COMMENT-IMPRESSION MANUAL DIFFERENTIAL; MONOCYTES % (MANUAL) 5 % (2-9); PLATELET MORPHOLOGY COMMENT ADEQUATE; REACTIVE LYMPHOCYTES 1 % (0-0); SEGMENTED NEUTROPHILS % 82 % (40-70)
[2019-06-03] MEDS: MIDAZOLAM 100MG-0.9% NS 100ML 100 ML IV PRN ×3 (06:53→23:39)
[2019-06-03] MEDS: LACTULOSE 20 GM/30 ML UDCUP PO SCH ×2 (08:20→20:44)
[2019-06-03] MEDS: METOPROLOL TARTRATE 25 MG TAB PO SCH ×2 (08:20→20:44)
[2019-06-03] MEDS: FAMOTIDINE/PF 20 MG/2 ML VIAL IV SCH ×2 (08:20→21:15)
[2019-06-03] MEDS: METHYLPREDNISOLONE SOD SUCC 40MG/ML 1ML IVP SCH (08:20)
[2019-06-03 09:46] LABS: ABG BASE EXCESS 13.1 mmol/L (-2.0-3.0); ABG HCO3 41.3 mmol/L (21.0-28.0); ABG PCO2 67 mmHg (35-48)
[2019-06-03 09:56] LABS: INR 1.02 (0.85-1.15); PARTIAL THROMBOPLASTIN TIME 20.7 SEC (26.3-35.5); PROTHROMBIN TIME 10.7 SEC (9.6-11.6)
--- NOTE | 2019-06-03 11:39 | NUR ---
RD FOLLOW UP Pt continues with tube feedings (Glucerna 1.5@45mls/hr). Pt tolerating tube feedings as per RN. Pt last noted BM 05/24/19; Recommend laxative/stool softener for constipation as medically feasible. Pt monitored labs: Cl 98, CO2 39, BUN 36, Cr 1.1, Glu 173, Alb 3.1. RD to continue to monitor. Please notify RD as additional nutrition concerns arise. Thank you. Addendum: 06/03/19 at [address] Amended: Links added.
[2019-06-03] MEDS: FENTANYL 2500MCG+NS 250ML 250 ML IV PRN ×2 (11:49→23:39)
[2019-06-03] MEDS: MEROPENEM 1 GM VIAL IVP SCH ×2 (14:12→21:15)
--- NOTE | 2019-06-03 16:27 | NUR ---
VENT CHECK DONE BY DOMINGO PAGE Addendum: 06/03/19 at 1628 by JAI PAGE, RT RT Amended: Links added.
--- NOTE | 2019-06-03 16:28 | NUR ---
INTERVENTION WAS DONE BY DOMINGO PAGE AT THIS TIME Addendum: 06/03/19 at 1629 by JAI PAGE, RT RT Amended: Links added.
--- NOTE | 2019-06-03 16:30 | NUR ---
INTERVENTION WAS DONE BY JAI PAGE Addendum: 06/03/19 at 1630 by JAI PAGE, RT RT Amended: Links added.
--- NOTE | 2019-06-03 22:35 | NUR ---
CPT held at this time due to patient feeling uncomfortable due to needing to go to the bathroom. Addendum: 06/03/19 at 2237 by RT LILIA RT Amended: Links added.
[2019-06-04] VITALS (24 sets, daily range): BP systolic 98–139; BP diastolic 48–87
[2019-06-04] MEDS: INSULIN HUMULIN R 100 UNIT/ML 3ML SQ SCH ×5 (00:40→23:58)
[2019-06-04] MEDS: DOXYCYCLINE 100MG+NS 250ML 250 ML IV SCH ×2 (00:44→13:14)
--- NOTE | 2019-06-04 03:25 | NUR ---
CPT held at this time. Patient had been restless, now patient is resting w/sedation. Addendum: 06/04/19 at 0327 by RT LILIA RT Amended: Links added.
[2019-06-04 03:52] LABS: BASOPHILS % (AUTO) 0.7 % (0.0-5.0); HEMATOCRIT 48.1 % (42-54); LYMPHOCYTES % (AUTO) 20.3 % (21.0-51.0); MEAN CORPUSCULAR HEMOGLOBIN 26.4 pg (27.0-33.0); MEAN CORPUSCULAR HGB CONC 31.1 g/dL (32.0-36.0); MEAN CORPUSCULAR VOLUME 84.8 fL (79-99); MONOCYTES % (AUTO) 18.3 % (3.0-13.0); NEUTROPHILS % (AUTO) 59.7 % (40.0-77.0); PLATELET COUNT (AUTO) 249 K/uL (130-400); RED BLOOD CELL COUNT(AUTO) 5.67 MIL/uL (4.50-6.20); RED CELL DISTRIBUTION WIDTH 17.9 % (11.0-15.5); WHITE BLOOD COUNT (AUTO) 12.3 K/uL (4.8-10.8)
[2019-06-04 04:06] LABS: CREATININE 1.1 mg/dL (0.5-1.5); MAGNESIUM 2.3 mg/dL (1.80-2.40); POTASSIUM 3.6 mmol/L (3.5-5.1)
[2019-06-04 05:03] LABS: ABG BASE EXCESS 9.8 mmol/L (-2.0-3.0); ABG HCO3 37.4 mmol/L (21.0-28.0); ABG OXYGEN SATURATION 89.6 % (95.0-99.0); ABG PCO2 63 mmHg (35-48)
--- NOTE | 2019-06-04 05:33 | NUR ---
Ventilator settings ABG drawn and had decreased in PO2 readings. Eran Hart [employer] called and increased Fio2 to 80%.Patient seems more agitated throughout the night, even with sedation on board. Patient did have BMx2 last night but continues to have distended abdomen.
[2019-06-04] MEDS: MEROPENEM 1 GM VIAL IVP SCH ×3 (05:39→21:45)
[2019-06-04] MEDS: IPRATROPIUM/ALBUTEROL SULFATE 3 ML SOLUTION IH SCH ×5 (07:19→22:26)
[2019-06-04] MEDS: METOPROLOL TARTRATE 25 MG TAB PO SCH ×2 (08:13→19:55)
[2019-06-04] MEDS: FAMOTIDINE/PF 20 MG/2 ML VIAL IV SCH ×2 (08:13→19:55)
[2019-06-04] MEDS: FUROSEMIDE 10 MG/ML 4ML VIAL IVP SCH ×2 (08:14→19:55)
[2019-06-04] MEDS: LACTULOSE 20 GM/30 ML UDCUP PO SCH ×2 (08:14→19:55)
[2019-06-04] MEDS: METHYLPREDNISOLONE SOD SUCC 40MG/ML 1ML IVP SCH (08:14)
[2019-06-04] MEDS: MIDAZOLAM 100MG-0.9% NS 100ML 100 ML IV PRN ×2 (09:43→19:55)
[2019-06-04] MEDS: FENTANYL 2500MCG+NS 250ML 250 ML IV PRN ×2 (09:43→22:40)
[2019-06-04] MEDS ORDERED: PROPOFOL 1000 MG/100 ML IV PRN (13:30)
[2019-06-04] MEDS: DIAZEPAM 5 MG TABLET PO SCH ×2 (15:23→21:46)
[2019-06-05] VITALS (24 sets, daily range): BP systolic 89–125; BP diastolic 48–74
[2019-06-05] MEDS: IPRATROPIUM/ALBUTEROL SULFATE 3 ML SOLUTION IH SCH ×6 (02:31→21:20)
[2019-06-05 03:24] LABS: BASOPHILS % (AUTO) 0.7 % (0.0-5.0); EOSINOPHILS % (AUTO) 0.3 % (0.0-8.0); HEMATOCRIT 46.5 % (42-54); LYMPHOCYTES % (AUTO) 18.4 % (21.0-51.0); MEAN CORPUSCULAR HEMOGLOBIN 26.3 pg (27.0-33.0); MEAN CORPUSCULAR HGB CONC 30.8 g/dL (32.0-36.0); MEAN CORPUSCULAR VOLUME 85.3 fL (79-99); MONOCYTES % (AUTO) 16.5 % (3.0-13.0); NEUTROPHILS % (AUTO) 64.1 % (40.0-77.0); NUCLEATED RED BLOOD CELLS 0.1 % (0.0-0.19); PLATELET COUNT (AUTO) 248 K/uL (130-400); RED BLOOD CELL COUNT(AUTO) 5.45 MIL/uL (4.50-6.20); RED CELL DISTRIBUTION WIDTH 17.9 % (11.0-15.5)
[2019-06-05 03:47] LABS: B-TYPE NATRIURETIC PEPTIDE 24 pg/mL (0-100)
[2019-06-05 03:51] LABS: CREATININE 1.2 mg/dL (0.5-1.5); MAGNESIUM 2.4 mg/dL (1.80-2.40); PHOSPHORUS 4.1 mg/dL (2.5-4.9)
[2019-06-05 04:29] LABS: ABG BASE EXCESS 11.2 mmol/L (-2.0-3.0); ABG HCO3 39.8 mmol/L (21.0-28.0); ABG PCO2 70 mmHg (35-48)
[2019-06-05] MEDS: MIDAZOLAM 100MG-0.9% NS 100ML 100 ML IV PRN ×2 (04:45→15:33)
--- NOTE | 2019-06-05 04:45 | NUR ---
PATIENT AGITATED Patient getting more alert and agitated throughout the shift. Started pulling off his gown and oulling at lines. Agitation increased when mittens were applied, so mitts removed and propofol started at low dose per protocol. Patient resting comfortably at this time. VSS, mother at bedside.
[2019-06-05] MEDS: PROPOFOL 1000 MG/100 ML 100 ML IV PRN ×2 (04:46→15:28)
[2019-06-05] MEDS: MEROPENEM 1 GM VIAL IVP SCH ×3 (05:53→20:36)
[2019-06-05] MEDS: DIAZEPAM 5 MG TABLET PO SCH ×3 (05:53→20:36)
[2019-06-05] MEDS: INSULIN HUMULIN R 100 UNIT/ML 3ML SQ SCH ×3 (05:55→17:43)
[2019-06-05] MEDS: FAMOTIDINE/PF 20 MG/2 ML VIAL IV SCH ×2 (08:11→20:30)
[2019-06-05] MEDS: METOPROLOL TARTRATE 25 MG TAB PO SCH ×2 (08:11→20:36)
[2019-06-05] MEDS: METHYLPREDNISOLONE SOD SUCC 40MG/ML 1ML IVP SCH (08:11)
[2019-06-05] MEDS: FUROSEMIDE 10 MG/ML 4ML VIAL IVP SCH ×2 (08:11→20:31)
[2019-06-05] MEDS: ACETAMINOPHEN 325 MG TAB PO PRN (08:16)
[2019-06-05] MEDS: LACTULOSE 20 GM/30 ML UDCUP PO SCH ×2 (09:00→20:30)
--- NOTE | 2019-06-05 10:52 | NUR ---
DC PLAN VISITED WITH PATIENT AND FAMILY. EXPLAINED THAT PATIENT RESPIRATORY NOT IMPROVING QUICKLY. MIGHT NEED TO BE TRAC/PEG. PATIENT IS UNDOCUMENTED AND HAS NO BENEFITS. NEED TO START PLANNING FOR WHEN PATIENT GOES HOME. LIKELY WILL NEED OXYGEN, VENT, SUCTION, ENTERAL SUPPLIES, DIAPERS. Addendum: 06/05/19 at 1119 by MAHNAZ MITCHELL RN CM Amended: Links added.
[2019-06-05] MEDS: DOXYCYCLINE 100MG+NS 250ML 250 ML IV SCH ×2 (11:49)
[2019-06-05] MEDS: FENTANYL 2500MCG+NS 250ML 250 ML IV PRN (12:51)
[2019-06-05 15:09] LABS: APPEARANCE,URINE CLOUDY (CLEAR); BILIRUBIN,URINE NEGATIVE (NEGATIVE); COLOR,URINE YELLOW (YELLOW); GLUCOSE, URINE (UA) NEGATIVE (NEGATIVE); KETONES,URINE NEGATIVE (NEGATIVE); LEUKOCYTE ESTERASE ,URINE NEGATIVE (NEGATIVE); NITRATE,URINE NEGATIVE (NEGATIVE); OCCULT BLOOD,URINE SMALL (NEGATIVE); PROTEIN,URINE TRACE mg/dL (NEGATIVE)
[2019-06-05 15:20] LABS: BACTERIA,URINE Many /HPF (None Seen); MUCUS,URINE Moderate LPF (None Seen); RBC,URINE 26-50 /HPF (0-1)
[2019-06-05 15:21] LABS: URIC ACID CRYSTALS,URINE Few /LPF (None Seen)
[2019-06-05] MEDS ORDERED: BUMETANIDE 0.25 MG/ML 10 ML VIAL IV SCH (22:45)
[2019-06-05] MEDS ORDERED: BUMETANIDE 0.25 MG/ML 10 ML 40 ML IV SCH (23:15)
[2019-06-06] VITALS (24 sets, daily range): BP systolic 90–118; BP diastolic 34–73
[2019-06-06] MEDS: DOXYCYCLINE 100MG+NS 250ML 250 ML IV SCH ×2 (00:29→12:20)
[2019-06-06] MEDS: FENTANYL 2500MCG+NS 250ML 250 ML IV PRN ×2 (00:29→12:43)
[2019-06-06] MEDS: INSULIN HUMULIN R 100 UNIT/ML 3ML SQ SCH ×4 (00:46→17:51)
[2019-06-06] MEDS: MIDAZOLAM 100MG-0.9% NS 100ML 100 ML IV PRN ×3 (01:31→21:44)
[2019-06-06] MEDS: IPRATROPIUM/ALBUTEROL SULFATE 3 ML SOLUTION IH SCH ×6 (02:03→21:36)
[2019-06-06] MEDS: PROPOFOL 1000 MG/100 ML 100 ML IV PRN ×2 (03:12→12:44)
[2019-06-06 03:45] LABS: ABG BASE EXCESS 7.1 mmol/L (-2.0-3.0); ABG HCO3 34.7 mmol/L (21.0-28.0); ABG OXYGEN SATURATION 85.6 % (95.0-99.0); ABG PCO2 62 mmHg (35-48)
[2019-06-06 05:48] LABS: BASOPHILS % (AUTO) 0.4 % (0.0-5.0); EOSINOPHILS % (AUTO) 0.1 % (0.0-8.0); HEMATOCRIT 42.5 % (42-54); LYMPHOCYTES % (AUTO) 14.6 % (21.0-51.0); MEAN CORPUSCULAR HEMOGLOBIN 25.9 pg (27.0-33.0); MEAN CORPUSCULAR HGB CONC 30.5 g/dL (32.0-36.0); MEAN CORPUSCULAR VOLUME 84.9 fL (79-99); NEUTROPHILS % (AUTO) 72.9 % (40.0-77.0); PLATELET COUNT (AUTO) 238 K/uL (130-400); RED BLOOD CELL COUNT(AUTO) 5.01 MIL/uL (4.50-6.20); RED CELL DISTRIBUTION WIDTH 17.8 % (11.0-15.5)
[2019-06-06] MEDS: MEROPENEM 1 GM VIAL IVP SCH (05:49)
[2019-06-06] MEDS: DIAZEPAM 5 MG TABLET PO SCH ×3 (05:50→21:12)
[2019-06-06 05:58] LABS: CREATININE 1.2 mg/dL (0.5-1.5); MAGNESIUM 2.4 mg/dL (1.80-2.40); POTASSIUM 4.2 mmol/L (3.5-5.1)
[2019-06-06 06:06] LABS: B-TYPE NATRIURETIC PEPTIDE 13 pg/mL (0-100)
[2019-06-06] MEDS: INSULIN NPH 100 UNIT/ML 3ML SQ SCH ×2 (07:18→16:33)
--- NOTE | 2019-06-06 08:00 | NUR ---
AM NOTE Orally intubated and sedated. RASS score -3. Head of bed elevated. Tube feedings Glucerna at 55cc/hr at goal rate, tolerating well, no residual noted. Lawson catheter to gravity. Mother at bedside, instructed on NOT to stimulate or talk to the patient in order to prevent him from waking up and getting restless, verbalized understanding. Sinus tachycardia in 100s. Side rails up. Bariatric bed set to turning mode.
[2019-06-06] MEDS: FAMOTIDINE/PF 20 MG/2 ML VIAL IV SCH ×2 (08:11→21:03)
[2019-06-06] MEDS: METHYLPREDNISOLONE SOD SUCC 40MG/ML 1ML IVP SCH (08:11)
[2019-06-06] MEDS: METOPROLOL TARTRATE 25 MG TAB PO SCH ×2 (08:11→21:05)
[2019-06-06] MEDS: LACTULOSE 20 GM/30 ML UDCUP PO SCH ×2 (08:11→21:04)
[2019-06-06] MEDS: ACETAMINOPHEN 325 MG TAB PO PRN (09:36)
--- NOTE | 2019-06-06 11:05 | NUR ---
MD VISIT Dr. Davis in to see pt, update given, plan of care discussed with pt's mother, verbalized understanding. New orders received and will carry out.
[2019-06-06] MEDS ORDERED: HEPARIN SODIUM 5000UNIT/ML 1ML VIAL SQ SCH (12:00)
[2019-06-06] MEDS: FUROSEMIDE 10 MG/ML 4ML VIAL IV SCH ×2 (12:16→20:06)
[2019-06-06] MEDS ORDERED: VANCOMYCIN PROTOCOL PER PHARMACY IV SCH (14:15)
[2019-06-06] MEDS ORDERED: COMPOUND IV REFRIGERATED 1 EACH IVSOLN MISC PRN (14:30)
--- NOTE | 2019-06-06 14:35 | NUR ---
CONSULT Dr. Boyd in to see pt, new orders received and will carry out.
[2019-06-06] MEDS: OSELTAMIVIR PHOSPHATE 75 MG CAP PO SCH (15:07)
[2019-06-06] MEDS: VANCOMYCIN 2 GM in SODIUM CHLORIDE 0.9% 500ML 500 ML IV SCH ×2 (15:08→21:06)
--- NOTE | 2019-06-06 15:15 | NUR ---
RD FOLLOW UP Pt Intubated, sedated as per EMR. Pt tolerating Tube feedings, Glucerna 1.5 @55mls/hr. Recommend to increase H2O Flushes to 300mls Q6hrs, secondary to possible dehydration. LBM 06/05/19. Monitored labs: Na 149, CO2 41, BUN 59, Glu 271. RD to continue to monitor. Please notify RD as nutritional concerns arise. Thank you. Addendum: 06/06/19 at [address] Amended: Links added.
--- NOTE | 2019-06-06 15:45 | NUR ---
MD NOTIFICATION Dr. Davis notified of venous doppler results, new order received for IVC filter placement, cathlab and OR made aware, consent obtained from pt's .
[2019-06-06] MEDS ORDERED: HEPARIN 25000 UNITS/250 ML D5W 250 ML IV ONE (16:12)
[2019-06-06] MEDS ORDERED: OXYMETAZOLINE HCL SPRAY 15 ML BOTTLE EN PRN (17:00)
--- NOTE | 2019-06-06 20:00 | NUR ---
ASSESSMENT PT RESTING IN BED IN SUPINE POSITION. PT INTUBATED, SEDATED. IV FLUIDS WITHOUT DIFFICULTY. WHIT BOARD UP-DATE. CALLBELL WITHIN REACH. ASSESSMENT COMPLETED, SEE FLOW SHEET.
[2019-06-07] VITALS (24 sets, daily range): BP systolic 104–145; BP diastolic 59–80
[2019-06-07] MEDS: FENTANYL 2500MCG+NS 250ML 250 ML IV PRN ×2 (00:39→13:43)
[2019-06-07] MEDS: IPRATROPIUM/ALBUTEROL SULFATE 3 ML SOLUTION IH SCH ×6 (01:26→21:59)
[2019-06-07] MEDS: OSELTAMIVIR PHOSPHATE 75 MG CAP PO SCH ×2 (02:15→13:43)
[2019-06-07] MEDS: HEPARIN 25000 UNITS/250 ML D5W 250 ML IV PRN ×2 (02:32→15:12)
[2019-06-07] MEDS: DIAZEPAM 5 MG TABLET PO SCH ×3 (04:07→21:00)
[2019-06-07] MEDS: FUROSEMIDE 10 MG/ML 4ML VIAL IV SCH (04:07)
[2019-06-07 05:37] LABS: BASOPHILS % (AUTO) 0.9 % (0.0-5.0); EOSINOPHILS % (AUTO) 0.5 % (0.0-8.0); HEMATOCRIT 39.8 % (42-54); LYMPHOCYTES % (AUTO) 13.5 % (21.0-51.0); MEAN CORPUSCULAR HEMOGLOBIN 26.2 pg (27.0-33.0); MEAN CORPUSCULAR HGB CONC 30.5 g/dL (32.0-36.0); MEAN CORPUSCULAR VOLUME 85.9 fL (79-99); MONOCYTES % (AUTO) 11.8 % (3.0-13.0); NEUTROPHILS % (AUTO) 73.3 % (40.0-77.0); PLATELET COUNT (AUTO) 186 K/uL (130-400); RED BLOOD CELL COUNT(AUTO) 4.63 MIL/uL (4.50-6.20); RED CELL DISTRIBUTION WIDTH 17.6 % (11.0-15.5); WHITE BLOOD COUNT (AUTO) 12.4 K/uL (4.8-10.8)
[2019-06-07 05:50] LABS: B-TYPE NATRIURETIC PEPTIDE 24 pg/mL (0-100)
[2019-06-07 05:51] LABS: MAGNESIUM 2.3 mg/dL (1.80-2.40); POTASSIUM 4.4 mmol/L (3.5-5.1)
[2019-06-07] MEDS: INSULIN HUMULIN R 100 UNIT/ML 3ML SQ SCH ×4 (05:57→17:54)
[2019-06-07] MEDS: INSULIN NPH 100 UNIT/ML 3ML SQ SCH ×2 (05:58→16:32)
[2019-06-07 06:05] LABS: ALBUMIN 2.6 g/dL (3.5-5.0); BILIRUBIN,TOTAL 0.9 mg/dL (0.2-1.0); TOTAL PROTEIN, SERUM 6.6 g/dL (6.0-8.3)
[2019-06-07 06:07] LABS: INR 1.04 (0.85-1.15); PARTIAL THROMBOPLASTIN TIME 54.7 SEC (26.3-35.5); PROTHROMBIN TIME 10.9 SEC (9.6-11.6)
--- NOTE | 2019-06-07 07:16 | NUR ---
REPORT BEDSIDE REPORT GIVEN ALO PARRA.
[2019-06-07] MEDS: MIDAZOLAM 100MG-0.9% NS 100ML 100 ML IV PRN ×2 (07:26→16:31)
[2019-06-07] MEDS: METHYLPREDNISOLONE SOD SUCC 40MG/ML 1ML IVP SCH (07:45)
[2019-06-07] MEDS: FAMOTIDINE/PF 20 MG/2 ML VIAL IV SCH ×2 (07:45→20:42)
[2019-06-07] MEDS: LACTULOSE 20 GM/30 ML UDCUP PO SCH ×2 (07:45→20:41)
[2019-06-07] MEDS: VANCOMYCIN 2 GM in SODIUM CHLORIDE 0.9% 500ML 500 ML IV SCH ×2 (07:46→21:01)
[2019-06-07] MEDS: METOPROLOL TARTRATE 25 MG TAB PO SCH ×2 (07:47→20:42)
--- NOTE | 2019-06-07 08:00 | NUR ---
AM NOTE Remain orally intubated and sedated. RASS score -3. Possible IVC filter placement today, mother at bedside, updated on plan of care, verbalized understanding.
[2019-06-07 08:12] LABS: ABG BASE EXCESS 12.2 mmol/L (-2.0-3.0); ABG HCO3 39.1 mmol/L (21.0-28.0); ABG PCO2 59 mmHg (35-48)
[2019-06-07] MEDS: PROPOFOL 1000 MG/100 ML 100 ML IV PRN ×2 (09:24→17:51)
--- NOTE | 2019-06-07 13:00 | NUR ---
ORDER CLARIFICATION Call made to Dr. Davis to clarify IVC filter placement, new order received to schedule for today. FIDEL Velázquez from cathlab and Leandra White from scheduling made aware, order in [facility].
--- NOTE | 2019-06-07 14:10 | NUR ---
MD VISIT Dr. Davis and JAYDE Heaton in to see pt, update given. New order received to cancel IVC filter placement, cathlab and scheduling department made aware.
--- NOTE | 2019-06-07 22:29 | NUR ---
CPT held at this time. Patient is on a heparin drip, and at this time patient was bleeding orally and nasally. Yanira PARRA aware of situation. Addendum: 06/07/19 at 2231 by DA BRISENO, RT RT Amended: Links added.
[2019-06-08] VITALS (28 sets, daily range): BP systolic 96–130; BP diastolic 43–94
[2019-06-08] MEDS: INSULIN HUMULIN R 100 UNIT/ML 3ML SQ SCH ×4 (00:27→17:02)
[2019-06-08] MEDS: PROPOFOL 1000 MG/100 ML 100 ML IV PRN ×3 (00:28→23:58)
[2019-06-08] MEDS: FENTANYL 2500MCG+NS 250ML 250 ML IV PRN ×2 (00:29→13:36)
[2019-06-08] MEDS: MIDAZOLAM 100MG-0.9% NS 100ML 100 ML IV PRN ×3 (00:30→23:58)
[2019-06-08] MEDS: HEPARIN 25000 UNITS/250 ML D5W 250 ML IV PRN (00:32)
[2019-06-08] MEDS: IPRATROPIUM/ALBUTEROL SULFATE 3 ML SOLUTION IH SCH ×6 (01:34→22:19)
[2019-06-08] MEDS: OSELTAMIVIR PHOSPHATE 75 MG CAP PO SCH ×2 (03:14→13:34)
[2019-06-08 04:25] LABS: HEMATOCRIT 37.5 % (42-54); MEAN CORPUSCULAR HEMOGLOBIN 26.1 pg (27.0-33.0); MEAN CORPUSCULAR HGB CONC 30.8 g/dL (32.0-36.0); MEAN CORPUSCULAR VOLUME 84.7 fL (79-99); PLATELET COUNT (AUTO) 217 K/uL (130-400); RED BLOOD CELL COUNT(AUTO) 4.43 MIL/uL (4.50-6.20); RED CELL DISTRIBUTION WIDTH 17.9 % (11.0-15.5); WHITE BLOOD COUNT (AUTO) 13.2 K/uL (4.8-10.8)
--- NOTE | 2019-06-08 04:40 | NUR ---
CPT held at this time due to active bleeding in the mouth and nose due to heparin drip. Dr. De La Cruz is aware as well as Yanira PARRA. Addendum: 06/08/19 at 0442 by DA BRISENO RT RT Amended: Links added.
[2019-06-08 04:52] LABS: CREATININE 0.8 mg/dL (0.5-1.5); POTASSIUM 4.5 mmol/L (3.5-5.1)
[2019-06-08] MEDS: DIAZEPAM 5 MG TABLET PO SCH ×3 (05:53→22:14)
[2019-06-08] MEDS: INSULIN NPH 100 UNIT/ML 3ML SQ SCH ×2 (05:57→16:30)
[2019-06-08 08:37] LABS: ABG BASE EXCESS 11.1 mmol/L (-2.0-3.0); ABG HCO3 38.2 mmol/L (21.0-28.0); ABG OXYGEN SATURATION 92.4 % (95.0-99.0); ABG PCO2 60 mmHg (35-48)
[2019-06-08] MEDS: METOPROLOL TARTRATE 25 MG TAB PO SCH ×2 (08:53→20:24)
[2019-06-08] MEDS: METHYLPREDNISOLONE SOD SUCC 40MG/ML 1ML IVP SCH (08:53)
[2019-06-08] MEDS: FAMOTIDINE/PF 20 MG/2 ML VIAL IV SCH ×2 (08:53→20:23)
[2019-06-08] MEDS: LACTULOSE 20 GM/30 ML UDCUP PO SCH ×2 (08:53→22:14)
[2019-06-08] MEDS: VANCOMYCIN 2 GM in SODIUM CHLORIDE 0.9% 500ML 500 ML IV SCH ×2 (09:37→22:15)
[2019-06-08] MEDS: ACETAMINOPHEN 325 MG TAB PO PRN ×2 (09:43→20:24)
--- NOTE | 2019-06-08 12:55 | NUR ---
DR. CASTRO HERE SPOKE WITH FAMILY AND ADVISED THEM THAT HIS PROGNOSIS IS VERY POOR AND RECOMMENDED TO MAKE PT DNR. PT HAS REQUIRED 100% O2 AND HIGH PEEPS AND PO2 HAS BEEN IN LOW 60'S AND O2 SATS OF 93 TO 99%. HEPARIN DRIP WAS DC'D PER DR. CASTRO.
--- NOTE | 2019-06-08 14:00 | NUR ---
DR. MUHAMMAD IN TO SEE PATIENT AND SPOKE WITH AND MOTHER AND STATED THAT HE IS IN NOT GOING TO OFFER SURGERY FOR NOW AND WILL WAIT FOR PATIENT TO BE MORE STABLE.
--- NOTE | 2019-06-08 16:33 | NUR ---
TRANSFERRED TO [facility] VIA BED AND ACCOMPANIED BY 2 RESPIRATORY THERAPIST AND NURSING STAFF, PT WAS TRANSFERRED WITH O2 IN PLACE.
[2019-06-08] MEDS: MEROPENEM 1 GM VIAL IVP SCH ×2 (17:01→23:57)
[2019-06-08] MEDS: FLUCONAZOLE 200 MG/NS 100 ML 100 ML IV SCH (17:02)
[2019-06-09] VITALS (34 sets, daily range): BP systolic 98–148; BP diastolic 44–110
[2019-06-09] MEDS: IPRATROPIUM/ALBUTEROL SULFATE 3 ML SOLUTION IH SCH ×6 (01:57→21:51)
[2019-06-09] MEDS: OSELTAMIVIR PHOSPHATE 75 MG CAP PO SCH ×2 (02:02→14:01)
[2019-06-09] MEDS: FENTANYL 2500MCG+NS 250ML 250 ML IV PRN ×2 (03:05→15:38)
[2019-06-09] MEDS: ACETAMINOPHEN 325 MG TAB PO PRN ×2 (04:15→10:17)
[2019-06-09 04:18] LABS: BASOPHILS % (AUTO) 0.6 % (0.0-5.0); EOSINOPHILS % (AUTO) 1.8 % (0.0-8.0); LYMPHOCYTES % (AUTO) 9.8 % (21.0-51.0); MEAN CORPUSCULAR HEMOGLOBIN 26.1 pg (27.0-33.0); MEAN CORPUSCULAR HGB CONC 30.3 g/dL (32.0-36.0); MEAN CORPUSCULAR VOLUME 86.2 fL (79-99); MONOCYTES % (AUTO) 9.8 % (3.0-13.0); PLATELET COUNT (AUTO) 197 K/uL (130-400); RED BLOOD CELL COUNT(AUTO) 3.95 MIL/uL (4.50-6.20); RED CELL DISTRIBUTION WIDTH 17.8 % (11.0-15.5); WHITE BLOOD COUNT (AUTO) 11.8 K/uL (4.8-10.8)
[2019-06-09 04:28] LABS: CREATININE 0.9 mg/dL (0.5-1.5)
[2019-06-09] MEDS: INSULIN HUMULIN R 100 UNIT/ML 3ML SQ SCH ×4 (06:00→17:09)
[2019-06-09] MEDS: DIAZEPAM 5 MG TABLET PO SCH ×3 (06:30→20:53)
[2019-06-09] MEDS: INSULIN NPH 100 UNIT/ML 3ML SQ SCH ×2 (07:30→16:30)
--- NOTE | 2019-06-09 07:55 | NUR ---
DR CARTER MADE AWARE VIA PHONE ABOUT LATEST TEMP 103.5, AXILLARY AND PLACED ON COOLING BLANKET, NO NEW ORDERS GIVEN.
[2019-06-09] MEDS: MEROPENEM 1 GM VIAL IVP SCH ×2 (08:29→15:19)
[2019-06-09] MEDS: LACTULOSE 20 GM/30 ML UDCUP PO SCH ×2 (08:29→20:52)
[2019-06-09] MEDS: FAMOTIDINE/PF 20 MG/2 ML VIAL IV SCH ×2 (08:30→20:53)
[2019-06-09] MEDS: METOPROLOL TARTRATE 25 MG TAB PO SCH ×2 (08:30→20:52)
[2019-06-09] MEDS: PROPOFOL 1000 MG/100 ML 100 ML IV PRN ×2 (08:32→17:52)
[2019-06-09 08:39] LABS: ABG BASE EXCESS 9.6 mmol/L (-2.0-3.0); ABG HCO3 36.1 mmol/L (21.0-28.0); ABG OXYGEN SATURATION 89.7 % (95.0-99.0); ABG PCO2 56 mmHg (35-48)
[2019-06-09] MEDS: VANCOMYCIN 2 GM in SODIUM CHLORIDE 0.9% 500ML 500 ML IV SCH ×2 (09:24→20:52)
[2019-06-09] MEDS: LEVOFLOXACIN 750 MG/D5W 150 ML 150 ML IV SCH (11:08)
[2019-06-09] MEDS: MIDAZOLAM 100MG-0.9% NS 100ML 100 ML IV PRN ×2 (11:11→19:12)
--- NOTE | 2019-06-09 12:00 | NUR ---
DR GILES AT BEDSIDE, NEW ORDERS GIVEN
--- NOTE | 2019-06-09 13:00 | NUR ---
DISCONTINUED NGT INTACT AND INSERTED 14 FR OGT, PLACEMENT CONFIRMED PER CHARGE NURSE ABRAHAN CARCAMO RN
[2019-06-09] MEDS: LIDOCAINE HCL 2% JELLY 5 ML TP SCH (14:07)
--- NOTE | 2019-06-09 14:20 | NUR ---
PROVIDED LOCAL CARE TO SHANNA. NARES, APPLIED 5 SPRAYS OF AFRIN TO EACH NARE, APPLIED LIDOCAINE GEL, AND THEN INSERTED NASAL PACKING TO SHANNA. NARES.
[2019-06-09] MEDS: FLUCONAZOLE 200 MG/NS 100 ML 100 ML IV SCH (15:19)
--- NOTE | 2019-06-09 20:00 | NUR ---
ASSESSMENT REMAINS ON VENT WITH ORDERED SETTINGS AND SEDATION. MOTHER AT BEDSIDE AND QUESTIONS ANSWERED. ASSESSMENT COMPLETED SEE FLOW SHEET. Addendum: 06/09/19 at 2017 by BERT RIDER RN RN Amended: Links added.
[2019-06-09] MEDS: OXYMETAZOLINE HCL SPRAY 15 ML BOTTLE EN SCH (21:00)
--- NOTE | 2019-06-09 21:17 | NUR ---
NASAL SPRAY DUE TO NASAL PACKING UNABLE TO ADMINISTER NASAL SPRAY.
[2019-06-10] VITALS (26 sets, daily range): BP systolic 92–136; BP diastolic 54–83
[2019-06-10] MEDS ORDERED: BUMETANIDE 0.25 MG/ML 10 ML VIAL IV SCH (00:45)
[2019-06-10] MEDS: MEROPENEM 1 GM VIAL IVP SCH ×3 (00:55→16:02)
[2019-06-10] MEDS: INSULIN HUMULIN R 100 UNIT/ML 3ML SQ SCH ×4 (01:02→17:16)
[2019-06-10] MEDS: IPRATROPIUM/ALBUTEROL SULFATE 3 ML SOLUTION IH SCH ×6 (01:42→22:09)
[2019-06-10] MEDS: OSELTAMIVIR PHOSPHATE 75 MG CAP PO SCH ×2 (02:21→14:43)
[2019-06-10] MEDS: FENTANYL 2500MCG+NS 250ML 250 ML IV PRN ×2 (03:29→16:03)
[2019-06-10] MEDS ORDERED: POTASSIUM CHLORIDE 20MEQ/100ML 100 ML IV PRN (04:30)
[2019-06-10] MEDS ORDERED: LIDOCAINE HCL-MPF 1% 2ML VIAL IV PRN (04:30)
[2019-06-10] MEDS: DIAZEPAM 5 MG TABLET PO SCH ×3 (06:02→21:16)
[2019-06-10] MEDS: ACETAMINOPHEN 325 MG TAB PO PRN (06:03)
[2019-06-10] MEDS: PROPOFOL 1000 MG/100 ML 100 ML IV PRN ×2 (06:34→16:03)
[2019-06-10] MEDS: MIDAZOLAM 100MG-0.9% NS 100ML 100 ML IV PRN ×2 (06:34→16:02)
[2019-06-10 06:57] LABS: CREATININE 0.9 mg/dL (0.5-1.5); POTASSIUM 4.6 mmol/L (3.5-5.1)
[2019-06-10 07:09] LABS: BASOPHILS % (AUTO) 0.4 % (0.0-5.0); EOSINOPHILS % (AUTO) 1.1 % (0.0-8.0); HEMATOCRIT 35.2 % (42-54); LYMPHOCYTES % (AUTO) 5.5 % (21.0-51.0); MEAN CORPUSCULAR HEMOGLOBIN 26.2 pg (27.0-33.0); MEAN CORPUSCULAR HGB CONC 30.1 g/dL (32.0-36.0); MEAN CORPUSCULAR VOLUME 87.2 fL (79-99); MONOCYTES % (AUTO) 8.8 % (3.0-13.0); NEUTROPHILS % (AUTO) 84.2 % (40.0-77.0); PLATELET COUNT (AUTO) 197 K/uL (130-400); RED BLOOD CELL COUNT(AUTO) 4.04 MIL/uL (4.50-6.20); RED CELL DISTRIBUTION WIDTH 18.3 % (11.0-15.5); WHITE BLOOD COUNT (AUTO) 15.5 K/uL (4.8-10.8)
[2019-06-10] MEDS: FAMOTIDINE/PF 20 MG/2 ML VIAL IV SCH ×2 (08:19→21:17)
[2019-06-10] MEDS: LEVOFLOXACIN 750 MG/D5W 150 ML 150 ML IV SCH (08:19)
[2019-06-10] MEDS: METOPROLOL TARTRATE 25 MG TAB PO SCH ×2 (08:19→21:16)
[2019-06-10] MEDS: LACTULOSE 20 GM/30 ML UDCUP PO SCH ×2 (08:19→21:17)
[2019-06-10] MEDS: OXYMETAZOLINE HCL SPRAY 15 ML BOTTLE EN SCH ×2 (08:20→21:00)
[2019-06-10] MEDS: INSULIN NPH 100 UNIT/ML 3ML SQ SCH ×2 (08:20→16:05)
[2019-06-10 08:22] LABS: ABG BASE EXCESS 8.5 mmol/L (-2.0-3.0); ABG HCO3 35.6 mmol/L (21.0-28.0); ABG OXYGEN SATURATION 91.8 % (95.0-99.0); ABG PCO2 59 mmHg (35-48)
[2019-06-10] MEDS: VANCOMYCIN 2 GM in SODIUM CHLORIDE 0.9% 500ML 500 ML IV SCH ×2 (08:47→21:26)
[2019-06-10] MEDS: LIDOCAINE HCL 2% JELLY 5 ML TP SCH (11:08)
--- NOTE | 2019-06-10 12:15 | NUR ---
ENTERED ROOM AFTER ROUNDING WITH DR GILES, PATIENT'S CRYING AT BEDSIDE. ASKED PATIENT'S ISABEL IF SHE HAD ANY QUESTIONS ABOUT DR GILES'S VISIT. PATIENT'S ISABEL ASKED IF THERE IS ANY OTHER MEDICATION WE CAN GIVE. REPEATED DR GILES'S WORDS THAT WE ARE DOING EVERYTHING WE CAN, THE MACHINE IS ON MAXIMUM SUPPORT, MULTIPLE ANTIBIOTICS AND THE PATIENT IS NOT SHOWING SIGNS OF IMPROVEMENT. DR GILES TOLD PATIENT'S AND MOTHER THAT HE IS TOO SICK FOR ANY PROCEDURES AND THAT HE WOULD LIKELY IN SURGERY. PATIENT'S STATED "I HATE SEEING HIM LIKE THIS. CAN'T WE TAKE THE TUBE OUT?" I CLARIFIED THAT SHE WAS REFERRING TO THE ETT, SHE SAID YES. WE DISCUSSED THE PATIENT'S DISTRESS ON ADMISSION ON THE BIPAP, THE INFORMATION PROVIDED BY THE DOCTORS ABOUT HIS HEALTH PROBLEMS AND THE CURRENT TREATMENTS. WE DISCUSSED THAT AT THIS TIME THE ONLY WAY THE ETT CAN COME OUT IS IF THE FAMILY DECIDES THAT HE WOULD NOT WANT TO CONTINUE ON LIFE SUPPORT. STATES SHE HAS NOT TOLD THE REST OF THE FAMILY HOW SICK THE PATIENT IS. WE DISCUSSED THAT ANYTHING CAN HAPPEN AND WE WILL CONTINUE ALL TREATMENT AT THIS TIME. EXTENSIVE EMOTIONAL SUPPORT GIVEN. THE PATIENT'S AND MOTHER APPRECIATIVE OF THE TIME AND EXPLANATION. INFORMED THEM TO LET ME KNOW IF THEY HAD ANY OTHER QUESTIONS.
[2019-06-10] MEDS: FLUCONAZOLE 200 MG/NS 100 ML 100 ML IV SCH (16:02)
--- NOTE | 2019-06-10 20:00 | NUR ---
ASSESSMENT REMAINS ON VENT WITH ORDERED SETTINGS AND SEDATION. MOTHER AT BEDSIDE QUESTIONS ANSWERED. ASSESSMENT COMPLETED SEE FLOW SHEET. Addendum: 06/10/19 at 2103 by BERT RIDER RN RN Amended: Links added.
[2019-06-10] MEDS: BUMETANIDE 0.25 MG/ML 10 ML 80 ML IV SCH (20:05)
[2019-06-11] VITALS (18 sets, daily range): BP systolic 87–119; BP diastolic 49–67
[2019-06-11] MEDS: MEROPENEM 1 GM VIAL IVP SCH ×2 (00:13→09:08)
[2019-06-11] MEDS: IPRATROPIUM/ALBUTEROL SULFATE 3 ML SOLUTION IH SCH ×3 (01:50→10:15)
[2019-06-11] MEDS: OSELTAMIVIR PHOSPHATE 75 MG CAP PO SCH (02:12)
[2019-06-11] MEDS: MIDAZOLAM 100MG-0.9% NS 100ML 100 ML IV PRN (02:12)
[2019-06-11] MEDS: PROPOFOL 1000 MG/100 ML 100 ML IV PRN (02:12)
[2019-06-11 04:49] LABS: CREATININE 1.1 mg/dL (0.5-1.5); MAGNESIUM 2.5 mg/dL (1.80-2.40); PHOSPHORUS 5.6 mg/dL (2.5-4.9)
[2019-06-11] MEDS: FENTANYL 2500MCG+NS 250ML 250 ML IV PRN (05:08)
[2019-06-11 05:16] LABS: ABG HCO3 36.1 mmol/L (21.0-28.0); ABG PCO2 66 mmHg (35-48)
[2019-06-11] MEDS: INSULIN HUMULIN R 100 UNIT/ML 3ML SQ SCH ×2 (05:57)
[2019-06-11] MEDS: DIAZEPAM 5 MG TABLET PO SCH (06:09)
[2019-06-11] MEDS: INSULIN NPH 100 UNIT/ML 3ML SQ SCH (06:16)
[2019-06-11] MEDS: OXYMETAZOLINE HCL SPRAY 15 ML BOTTLE EN SCH (09:00)
[2019-06-11] MEDS: LEVOFLOXACIN 750 MG/D5W 150 ML 150 ML IV SCH (09:08)
[2019-06-11] MEDS: FAMOTIDINE/PF 20 MG/2 ML VIAL IV SCH (09:08)
[2019-06-11] MEDS: LACTULOSE 20 GM/30 ML UDCUP PO SCH (09:10)
[2019-06-11] MEDS: VANCOMYCIN 2 GM in SODIUM CHLORIDE 0.9% 500ML 500 ML IV SCH (09:14)
--- NOTE | 2019-06-11 09:19 | NUR ---
Afrin held due to patient having nasal packings in place
[2019-06-11] MEDS: BUMETANIDE 0.25 MG/ML 10 ML 80 ML IV SCH (09:48)
[2019-06-11] MEDS: METOPROLOL TARTRATE 25 MG TAB PO SCH (09:50)
--- NOTE | 2019-06-11 10:59 | NUR ---
Patient coded around 1058, coded blue was called als/bls was started immediately. Please refer to code sheet in chart.
--- NOTE | 2019-06-11 11:00 | NUR ---
Dr. Day called 3 times with no answer. awaiting call back.
--- NOTE | 2019-06-11 11:05 | NUR ---
Critical care notification Nursing reported critical care had not returned call back via page and personal cell. CM assisted. Dr. Day responded at 1112 requesting ER to run code and he is on his way. CD
--- NOTE | 2019-06-11 15:50 | NUR ---
post mortem care completed. security notified.
== END 2019-06-11 11:22 | disposition expired | DRG 853 ==
LOC: EDH 07:10 → EDHIP 07:11 → 2BH 12:14 → 2CH 06-08 16:32
PROVIDERS: ADMIT Family Medicine; ATTEND Family Medicine
PROC: 0BH17EZ Insertion of Endotracheal Airway into Trachea, Via Natural or Artificial Opening (ICD-10-PCS; principal; 2019-05-25)
PROC: 5A1955Z Respiratory Ventilation, Greater than 96 Consecutive Hours (ICD-10-PCS; 2019-05-25)
PROC: 5A09357 Assistance with Respiratory Ventilation, Less than 24 Consecutive Hours, Continuous Positive Airway Pressure (ICD-10-PCS; 2019-05-25)
PROC: 02H633Z Insertion of Infusion Device into Right Atrium, Percutaneous Approach (ICD-10-PCS; 2019-06-03)
PROC: 06H03DZ Insertion of Intraluminal Device into Inferior Vena Cava, Percutaneous Approach (ICD-10-PCS; 2019-06-06)
DX: A41.9 Sepsis, unspecified organism (principal); J96.21 Acute and chronic respiratory failure with hypoxia; G93.41 Metabolic encephalopathy; I50.33 Acute on chronic diastolic (congestive) heart failure; J18.9 Pneumonia, unspecified organism; J96.22 Acute and chronic respiratory failure with hypercapnia; E66.2 Morbid (severe) obesity with alveolar hypoventilation; L03.116 Cellulitis of left lower limb; L03.115 Cellulitis of right lower limb; L03.311 Cellulitis of abdominal wall; M62.82 Rhabdomyolysis; E87.3 Alkalosis; I82.412 Acute embolism and thrombosis of left femoral vein; E44.0 Moderate protein-calorie malnutrition; Z68.45 Body mass index [BMI] 70 or greater, adult; Z99.11 Dependence on respirator [ventilator] status; I89.0 Lymphedema, not elsewhere classified; K74.60 Unspecified cirrhosis of liver; R04.0 Epistaxis; R65.20 Severe sepsis without septic shock; Z91.19 Patient's noncompliance with other medical treatment and regimen; Z79.899 Other long term (current) drug therapy
CPT/HCPCS: 31500; 36415; 36600; 71045; 71250; 71275; 74018; 76705; 80048; 80053; 80061; 80074; 80076; 80202; 80305; 81001; 82040; 82140; 82435; 82550; 82803; 82947; 82948; 83036; 83605; 83735; 83880; 84100; 84132; 84145; 84295; 84484; 85014; 85018; 85025; 85027; 85378; 85384; 85610; 85730; 87040; 87071; 87205; 87804; 92950; 93005; 93306; 93970; 94002; 94003; 94640; 94660; 94664; 94667; 94668; 94770; 99291; C1751; C1894; G0378; J0171; J0282; J0461; J1450; J1644; J1650; J1815; J1940; J1956; J2185; J2250; J2543; J2704; J2920; J2930; J3010; J3370; J3475; J3490; J7030; J7040; Q9967